=== PATIENT | female | born 1980 | race Caucasian/White ===

== ENCOUNTER 2021-02-05 22:00 | Emergency (ER) | payer OTHER ==
[2021-02-05] MEDS ORDERED: MEDROL4 MG PO (22:36)
[2021-02-05] MEDS ORDERED: CEPHALEXIN500 M1 PO (22:41)
== END 2021-02-05 22:49 | disposition home or self-care (01) ==
LOC: ER1 22:00
DX: L25.9 Unspecified contact dermatitis, unspecified cause (principal); L03.90 Cellulitis, unspecified
CPT/HCPCS: 96374; 99282; J2930